=== PATIENT | male | born 1985 | race Caucasian/White ===

== ENCOUNTER 2020-03-24 17:36 | Emergency (ER) | payer SELFPAY ==
[~2020-03-24] VITALS: Ht 198.1 cm; Wt 172.4 kg
[2020-03-24 17:41] VITALS: BP 146/78
--- NOTE | 2020-03-24 17:45 | NUR ---
34 Y/O MALE BIBA FROM HOME C/O SUDDEN ONSET ANXIETY WITH NUMBNESS TO LT SIDE OF FACE AND LT UPPER EXTREMITY. PT STATES THE NUMBNESS HAD DIMINISHED BUT IS FEELING SHORT OF BREATH. DENIES PAIN AT THIS TIME. RR EVEN AND UNLABORED, PT SKIN WARM AND DRY TO THE TOUCH. HOB ELEVATED, PT CALM AND PLEASANT. MEDHX: ANXIETY ALLERGIES: NKA
--- NOTE | 2020-03-24 17:51 | NUR ---
DR ARANGO AT BEDSIDE EXAMINING PT
[2020-03-24] MEDS ORDERED: LORazepam 1 MG TAB PO ONE (18:00)
--- NOTE | 2020-03-24 18:05 | NUR ---
PT TO CT VIA WHEELCHAIR
--- NOTE | 2020-03-24 18:13 | NUR ---
PT RETURNED FROM CT VIA WHEELCHAIR
--- NOTE | 2020-03-24 18:40 | NUR ---
PT STATES DECREASE IN ANXIETY.
--- NOTE | 2020-03-24 18:47 | NUR ---
Patient discharged with v/s stable. Written and verbal after care instructions given and explained. Patient verbalized understanding. Ambulatory with steady gait. All questions addressed prior to discharge. Advised to follow up with PMD.
[2020-03-24 18:48] VITALS: BP 139/77
== END 2020-03-24 18:47 | disposition home or self-care (01) ==
LOC: MED 17:36
DX: F41.9 Anxiety disorder, unspecified (principal)
CPT/HCPCS: 70450; 99284